=== PATIENT | male | born 1980 | race Caucasian/White ===

== ENCOUNTER → 2019-04-11 07:44 | Outpatient (CLI) | payer OTHER, SELFPAY ==
--- NOTE | 2019-04-11 | DI.MRI.S_ITS ---
PROCEDURE: MR KNEE LT WO CON INDICATIONS: Other internal derangements of left knee TECHNIQUE: Noncontrast sagittal PD fast spin echo and T2 fast spin echo with fat saturation, sagittal 3-D FLASH with fat saturation; coronal T1 spin echo and PD fast spin echo with fat saturation, and axial PD fast spin echo with fat saturation through the knee. COMPARISON: None. FINDINGS: Image quality: Diagnostic. Bones and joint: There is no acute fracture or dislocation. No suspicious osseous lesions are evident. There is a moderate-sized knee joint effusion with an associated prominent Crystal's cyst. Mild edema about the Crystal's cyst is present. Heterogeneity of the hyaline articular cartilage is noted within the medial and patellofemoral compartments a small irregular full-thickness cartilaginous defects present. Areas of degenerative/reactive marrow change are present involving the medial femoral condyle. Heterogeneity of the head articular cartilage within the lateral tibiofemoral compartment is present. Cruciate ligaments: The anterior cruciate ligament is completely torn. The posterior cruciate ligament is intact. Menisci: There is a small vertically oriented tear identified involving the free edge of the lateral meniscus at the junction of the anterior horn and body (image 25, series 6). This tear involves both the femoral and tibial articular surfaces. There is a moderate-sized para meniscal cyst along the anterior aspect of the anterior horn of the lateral ventricle, that measures up to approximately 1.3 cm in diameter. The posterior root of the lateral meniscus probably attaches onto the posterior meniscal femoral ligament, rather than the tibia. The possibility of a full-thickness posterior root avulsion is difficult to exclude. There is high-grade partial-thickness tearing involving the posterior root of the medial meniscus with an additional complex tear extending through the body and posterior horn. A displaced undersurface fragment may be present extending into the adjacent medial gutter. Medial structures: The medial collateral ligament is intact. However, slight articular surface irregularity may be related to previous partial thickness injury. The semimembranosus tendon insertion is intact. The imaged portions of the pes anserinus tendons are unremarkable. No significant fluid is contained within the pes anserinus bursa. Lateral structures: The popliteal tendon is intact. The lateral collateral ligament proper (fibular collateral ligament) and the proximal tibiofibular ligaments are intact. The distal aspect of the biceps femoris tendon and the iliotibial band are intact. Anterior structures: The quadriceps and patellar tendons are intact. There is slight increased signal involving the proximal patellar tendon. There is mild edema in the infrapatellar fat pad. IMPRESSION: 1. Complex medial meniscal tear with a probable undersurface displaced meniscal flap. 2. 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 3. Small vertical tear at the junction of the body and posterior horn of the lateral meniscus. There is questionable posterior root avulsion of the lateral meniscus versus a normal anatomic variant with the posterior root of the lateral meniscus terminating onto the posterior meniscal femoral ligament. 4. Moderate-sized knee joint effusion with a probable leaking Crystal's cyst. 5. 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 Dictated by: Austin Barrios M.D. on 04/11/2019 at 9:20 Approved by: Austin Barrios M.D. on 04/11/2019 at 9:25
== END ==
PROVIDERS: PCP Student in an Organized Health Care Education/Training Program; Visit Provider Student in an Organized Health Care Education/Training Program
DX: S83.512A Sprain of anterior cruciate ligament of left knee, initial encounter (principal); S83.232A Complex tear of medial meniscus, current injury, left knee, initial encounter; S83.282A Other tear of lateral meniscus, current injury, left knee, initial encounter; M25.462 Effusion, left knee; M71.22 Synovial cyst of popliteal space [Baker], left knee; M94.262 Chondromalacia, left knee
CPT/HCPCS: 73721

== ENCOUNTER 2025-05-16 14:05 | Observation (INO) | payer OTHER, SELFPAY ==
[2025-05-16] VITALS (23 sets, daily range): BP systolic 106–167; BP diastolic 78–94; PULSE 57–82; RESP 11–22; TEMP 36.1–36.6; O2SAT 95–99; BMI 27.5; BMI 27.1
--- NOTE | 2025-05-16 14:08 | DI.RAD.S_ITS ---
PROCEDURE: XR CHEST 1V INDICATIONS: Chest Pain TECHNIQUE: One view of the chest was acquired. COMPARISON: None. FINDINGS: Surgical changes and devices: None. Lungs and pleura: On this semiupright portable chest examination, no large pneumothorax or large pleural effusions are seen. No focal infiltrates are seen. Low lung volumes are noted. This causes a crowded appearance to the lung markings and limits evaluation. Mediastinum: Mediastinal contours appear normal. Heart size is normal. Bones and chest wall: No suspicious bony lesions. Overlying soft tissues appear unremarkable. IMPRESSION: Limited portable chest examination, without a significant cardiopulmonary abnormality identified. Dictated by: Lenny Tamez M.D. on 05/16/2025 at 13:35 Approved by: Lenny Tamez M.D. on 05/16/2025 at 13:36
--- NOTE | 2025-05-16 14:08 | EKG_ITS ---
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
[2025-05-16 14:30] LABS: Add Manual Diff / Slide Review NO; Hematocrit 46.4 % (41-53); Hemoglobin 16.2 g/dL (13.5-17.5); Lymphocytes Absolute Auto 2500 /uL (1100-4500); Mean Corpuscular HGB Conc 35.0 % (30-36); Mean Corpuscular Hemoglobin 30.2 PG (26-34); Mean Corpuscular Volume 86.3 fL (80-100); Platelet Count 271 X10^3/uL (150-400)
[2025-05-16 14:33] LABS: INR 1.0 (0.9-1.3); Prothrombin Time 11.7 SECONDS (9.4-12.5)
[2025-05-16 14:36] LABS: PTT Partial Thromboplastin Tim 32 SECONDS (25.1-36.5)
[2025-05-16 14:38] LABS: Alanine Aminotransferase 37 IU/L (<50); Albumin 4.9 g/dL (3.5-5.0); Albumin Globulin Ratio 1.7 (1.0-2.8); Alkaline Phosphatase 55 U/L (38-126); Blood Urea Nitrogen 16 mg/dL (9-20); Calcium 9.3 mg/dL (8.4-10.2); Carbon Dioxide 19 mmol/L (22-32); Chloride 109 mmol/L (98-107); Creatine Kinase 108 U/L (55-170); Estimated Glomerular Filt Rate > 60 mL/min (>60); Globulin 2.9 g/dL (1.7-4.1); Glucose 69 mg/dL (70-99); HEMOLYSIS 24 (0-50); Lipase 73 U/L (23-300); Magnesium 2.3 mg/dL (1.6-2.3); Potassium 3.6 mmol/L (3.4-5.1); Sodium 139 mmol/L (137-145); Total Protein 7.8 g/dL (6.3-8.2)
[2025-05-16 14:49] LABS: NT-proBNP (BNP-Adult 18+) < 20 pg/mL (<125); Troponin I < 0.012 ng/mL (0.01-0.034)
--- NOTE | 2025-05-16 17:43 | ED_ITS ---
HPI - Chest Pain <Gatito France MD - Last Filed: 05/16/25 17:48> General Chief Complaint: Chest Pain Stated Complaint: Chest Pain, SOB Time Seen by Provider: 05/16/25 17:29 Source: patient Mode of arrival: EMS Limitations: no limitations History of Present Illness HPI narrative: This is a 44-year-old male with left-sided pressure-like chest pain that has been ongoing for 2 weeks. Sometimes associated with shortness of breath not associated with a cough or fevers. He has been seen at 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 They initially tried to him with nonsteroidal anti-inflammatories and then we are concerned for pericarditis and started him on colchicine. On colchicine for 6 days without change in his symptoms. Today the patient felt worse with increasing exertional shortness of breath and he called an ambulance. ECG from pre-hospital was reviewed, no acute ST segment changes. Patient reports he is unsure about his family history on his father's side, no known first-degree relatives with coronary disease no history of hypertension elevated cholesterol or diabetes, he used tobacco occasionally. No prolonged immobilizations leg pain or leg swelling. Related Data Home Medications ?Medication ?Instructions ?Recorded ?Confirmed No Known Home Medications 03/26/2512/19 Allergies Allergy/AdvReac Type Severity Reaction Status Date / Time No Known Drug Allergies Allergy Unverified 05/16/25 14:14 Patient History <Gatito France MD - Last Filed: 05/16/25 17:48> Medical History Migraine headache Kidney stones Depression Arthritis Family History Grandmother Diabetes mellitus Mother Migraine Social History marital status: number of children: 3 occupational status: employed Smoking Status: Current some day smoker Tobacco: How many years used: 15 alcohol intake: current caffeine: Yes Type(s) of exercise: walking and running Smoking Status: Current some day smoker tobacco type: cigars Exam <Gatito France MD - Last Filed: 05/16/25 17:48> Initial Vital Signs Initial Vital Signs: Vital Signs Temperature 97.9 F 05/16/25 14:10 Pulse Rate 72 05/16/25 14:10 Respiratory Rate 14 05/16/25 14:10 Blood Pressure 131/85 05/16/25 14:10 Pulse Oximetry 98 05/16/25 14:10 Oxygen Delivery Method Room Air 05/16/25 14:10 vital signs are reviewed Const General: cooperative and No acute distress HENMT Head: normocephalic and atraumatic Face and sinus: face symmetric Mouth: moist mucous membranes Eyes Pupils: PERRL EOM: EOM intact bilaterally Neck Neck: normal visual inspection, supple and No JVD Chest Chest: normal inspection of the chest Resp Effort & Inspection: normal respiratory effort and able to speak in complete sentences Auscultation: clear to auscultation bilaterally Cardio Rate: regular rate Rhythm: regular rhythm Heart Sounds: no murmurs Other: Normal heart rate no friction rub GI Inspection: normal to inspection Palpation: soft Auscultation: normal bowel sounds Back/Spine/Pelvis Back: normal to inspection Skin General: no rashes or lesions noted and warm Neuro General: patient alert, patient oriented x3 and moves all extremities Speech: speech normal Extrem General: full ROM Psych Appearance: grossly normal <Tin Trujillo DO - Last Filed: 05/16/25 20:21> Initial Vital Signs Initial Vital Signs: Vital Signs Temperature 97.9 F 05/16/25 14:10 Pulse Rate 72 05/16/25 14:10 Respiratory Rate 14 05/16/25 14:10 Blood Pressure 131/85 05/16/25 14:10 Pulse Oximetry 98 05/16/25 14:10 Oxygen Delivery Method Room Air 05/16/25 14:10 Course <Gatito France MD - Last Filed: 05/16/25 17:48> Orders Ordered: ED Orders 05/16/25 14:08 XR chest 1V Stat CRP [C-Reactive Protein Quant] Stat ESR [Erythrocyte Sedimentation Rate] Stat EKG-12 Lead Stat 05/16/25 14:18 Complete Blood Count AUTO DIFF Stat Comprehensive Metabolic Panel Stat Lipase Stat Magnesium Stat NT-proBNP (BNP-Adult 18+) Stat PTT Partial Thromboplastin Alfonso Stat Prothrombin Time INR Stat Troponin & CK Cardiac Panel Stat 05/16/25 17:41 CT chest w con Stat 05/16/25 19:16 CT angio chest Stat Vital Signs Vital signs: Vital Signs - 8 hr 05/16/25 14:10 05/16/25 14:10 05/16/25 14:10 Temperature 97.9 F Pulse Rate 72 71 Respiratory Rate 14 Blood Pressure 131/85 131/85 Pulse Oximetry 98 98 Oxygen Delivery Method Room Air 05/16/25 14:30 05/16/25 14:35 05/16/25 14:35 Temperature Pulse Rate 68 62 Respiratory Rate 22 15 Blood Pressure 106/81 Pulse Oximetry 97 98 Oxygen Delivery Method 05/16/25 15:00 05/16/25 15:01 05/16/25 15:01 Temperature Pulse Rate 65 63 Respiratory Rate 16 Blood Pressure 167/88 H Pulse Oximetry 96 97 Oxygen Delivery Method 05/16/25 15:30 05/16/25 15:31 05/16/25 15:31 Temperature Pulse Rate 63 64 Respiratory Rate 14 11 L Blood Pressure 146/83 H Pulse Oximetry 97 97 Oxygen Delivery Method 05/16/25 16:00 05/16/25 16:00 05/16/25 16:30 Temperature Pulse Rate 61 66 Respiratory Rate 19 14 Blood Pressure 147/92 H Pulse Oximetry 98 97 Oxygen Delivery Method 05/16/25 16:31 05/16/25 16:31 05/16/25 17:00 Temperature Pulse Rate 65 64 Respiratory Rate 19 16 Blood Pressure 155/84 H Pulse Oximetry 98 97 Oxygen Delivery Method 05/16/25 17:01 05/16/25 17:01 05/16/25 17:30 Temperature Pulse Rate 66 Respiratory Rate 17 Blood Pressure 150/87 H 146/85 H Pulse Oximetry 97 Oxygen Delivery Method 05/16/25 17:30 05/16/25 18:00 05/16/25 18:02 Temperature Pulse Rate 61 82 Respiratory Rate 22 Blood Pressure 142/87 H Pulse Oximetry 97 96 Oxygen Delivery Method 05/16/25 18:02 Temperature Pulse Rate 61 Respiratory Rate 19 Blood Pressure Pulse Oximetry 99 Oxygen Delivery Method <Tin Trujillo, DO - Last Filed: 05/16/25 20:21> Orders Ordered: ED Orders 05/16/25 14:08 XR chest 1V Stat CRP [C-Reactive Protein Quant] Stat ESR [Erythrocyte Sedimentation Rate] Stat EKG-12 Lead Stat 05/16/25 14:18 Complete Blood Count AUTO DIFF Stat Comprehensive Metabolic Panel Stat Lipase Stat Magnesium Stat NT-proBNP (BNP-Adult 18+) Stat PTT Partial Thromboplastin Alfonso Stat Prothrombin Time INR Stat Troponin & CK Cardiac Panel Stat 05/16/25 17:41 CT chest w con Stat 05/16/25 19:16 CT angio chest Stat Vital Signs Vital signs: Vital Signs - 8 hr 05/16/25 14:10 05/16/25 14:10 05/16/25 14:10 Temperature 97.9 F Pulse Rate 72 71 Respiratory Rate 14 Blood Pressure 131/85 131/85 Pulse Oximetry 98 98 Oxygen Delivery Method Room Air 05/16/25 14:30 05/16/25 14:35 05/16/25 14:35 Temperature Pulse Rate 68 62 Respiratory Rate 22 15 Blood Pressure 106/81 Pulse Oximetry 97 98 Oxygen Delivery Method 05/16/25 15:00 05/16/25 15:01 05/16/25 15:01 Temperature Pulse Rate 65 63 Respiratory Rate 16 Blood Pressure 167/88 H Pulse Oximetry 96 97 Oxygen Delivery Method 05/16/25 15:30 05/16/25 15:31 05/16/25 15:31 Temperature Pulse Rate 63 64 Respiratory Rate 14 11 L Blood Pressure 146/83 H Pulse Oximetry 97 97 Oxygen Delivery Method 05/16/25 16:00 05/16/25 16:00 05/16/25 16:30 Temperature Pulse Rate 61 66 Respiratory Rate 19 14 Blood Pressure 147/92 H Pulse Oximetry 98 97 Oxygen Delivery Method 05/16/25 16:31 05/16/25 16:31 05/16/25 17:00 Temperature Pulse Rate 65 64 Respiratory Rate 19 16 Blood Pressure 155/84 H Pulse Oximetry 98 97 Oxygen Delivery Method 05/16/25 17:01 05/16/25 17:01 05/16/25 17:30 Temperature Pulse Rate 66 Respiratory Rate 17 Blood Pressure 150/87 H 146/85 H Pulse Oximetry 97 Oxygen Delivery Method 05/16/25 17:30 05/16/25 18:00 05/16/25 18:02 Temperature Pulse Rate 61 82 Respiratory Rate 22 Blood Pressure 142/87 H Pulse Oximetry 97 96 Oxygen Delivery Method 05/16/25 18:02 Temperature Pulse Rate 61 Respiratory Rate 19 Blood Pressure Pulse Oximetry 99 Oxygen Delivery Method MDM - Chest Pain <Gatito France MD - Last Filed: 05/16/25 17:48> Lab Data Lab results narrative: Troponin normal, CBC with diff is unremarkable, CMP noted for a bilirubin of 1.9 with normal transaminases and alkaline phosphatase 05/16/25 14:18 05/16/25 14:18 Labs: Lab Results 05/16/25 05/16/25 Range/Units 14:08 14:18 WBC 6.6 (4.5-11.0) X10^3/uL RBC 5.38 (4.5-5.9) X10^6/uL Hgb 16.2 (13.5-17.5) g/dL Hct 46.4 (41-53) % MCV 86.3 (80-100) fL MCH 30.2 (26-34) PG MCHC 35.0 (30-36) % RDW 13.2 (11.6-14.8) % Plt Count 271 (150-400) X10^3/uL Neut % (Auto) 53.0 (50-75) % Lymph % (Auto) 38.1 (25-40) % Creek % (Auto) 6.4 (3-14) % Eos % (Auto) 1.2 L (2-4) % Baso % (Auto) 1.3 (0-2) % Neut # (Auto) 3500 (1452-3882) /uL Lymph # (Auto) 2500 (6417-4108) /uL Creek # (Auto) 400 (0-900) /uL Eos # (Auto) 100 (0-450) /uL Baso # (Auto) 100 (0-100) /uL ESR 2 (0-15) MM/HR PT 11.7 (9.4-12.5) SECONDS INR 1.0 (0.9-1.3) APTT 32 (25.1-36.5) SECONDS Sodium 139 (137-145) mmol/L Potassium 3.6 (3.4-5.1) mmol/L Chloride 109 H (98-107) mmol/L Carbon Dioxide 19 L (22-32) mmol/L BUN 16 (9-20) mg/dL Creatinine 1.17 (0.66-1.25) mg/dL Estimated GFR > 60 (>60) mL/min BUN/Creatinine Ratio 13.7 (6-22) Glucose 69 L (70-99) mg/dL Calcium 9.3 (8.4-10.2) mg/dL Magnesium 2.3 (1.6-2.3) mg/dL Total Bilirubin 1.9 H (0.2-1.3) mg/dL AST 32 (17-59) IU/L ALT 37 (<50) IU/L Alkaline Phosphatase 55 (38-126) U/L Total Creatine Kinase 108 (55-170) U/L Troponin I < 0.012 (0.01-0.034) ng/mL C-Reactive Protein < 0.5 (<1.0) mg/dL NT-Pro-B Natriuret Pep < 20 (<125) pg/mL Total Protein 7.8 (6.3-8.2) g/dL Albumin 4.9 (3.5-5.0) g/dL Globulin 2.9 (1.7-4.1) g/dL Albumin/Globulin Ratio 1.7 (1.0-2.8) Lipase 73 (23-300) U/L Imaging Data Chest x-ray: My Impression: Independent review of chest x-ray, no acute finding ECG Data Attestation: I personally reviewed and interpreted this ECG as follows: (Sinus rhythm at [address] segment changes no previous infarction this is a normal EKG) MDM Narrative Medical decision making narrative: 44-year-old male previously healthy presenting with an episode of chest pain that has been going on for 2 weeks. Does not appear to be ischemic, I considered but do not suspect pulmonary embolism. There has been concern for pericarditis raised by his primary care provider, patient has an order for an outpatient CT of his chest but this is not been completed. Overall he appears stable. I think it is reasonable to further evaluate the possibility of pericarditis given his persistent chest pain, we will get the CT of his chest as well as checking sed rate and C-reactive protein. Patient was cautioned that may not be able to explain his chest pain today. <Tin Trujillo, - Last Filed: 05/16/25 20:21> Lab Data Labs: Lab Results 05/16/25 05/16/25 Range/Units 14:08 14:18 WBC 6.6 (4.5-11.0) X10^3/uL RBC 5.38 (4.5-5.9) X10^6/uL Hgb 16.2 (13.5-17.5) g/dL Hct 46.4 (41-53) % MCV 86.3 (80-100) fL MCH 30.2 (26-34) PG MCHC 35.0 (30-36) % RDW 13.2 (11.6-14.8) % Plt Count 271 (150-400) X10^3/uL Neut % (Auto) 53.0 (50-75) % Lymph % (Auto) 38.1 (25-40) % Creek % (Auto) 6.4 (3-14) % Eos % (Auto) 1.2 L (2-4) % Baso % (Auto) 1.3 (0-2) % Neut # (Auto) 3500 (3974-3957) /uL Lymph # (Auto) 2500 (7772-1943) /uL Creek # (Auto) 400 (0-900) /uL Eos # (Auto) 100 (0-450) /uL Baso # (Auto) 100 (0-100) /uL ESR 2 (0-15) MM/HR PT 11.7 (9.4-12.5) SECONDS INR 1.0 (0.9-1.3) APTT 32 (25.1-36.5) SECONDS Sodium 139 (137-145) mmol/L Potassium 3.6 (3.4-5.1) mmol/L Chloride 109 H (98-107) mmol/L Carbon Dioxide 19 L (22-32) mmol/L BUN 16 (9-20) mg/dL Creatinine 1.17 (0.66-1.25) mg/dL Estimated GFR > 60 (>60) mL/min BUN/Creatinine Ratio 13.7 (6-22) Glucose 69 L (70-99) mg/dL Calcium 9.3 (8.4-10.2) mg/dL Magnesium 2.3 (1.6-2.3) mg/dL Total Bilirubin 1.9 H (0.2-1.3) mg/dL AST 32 (17-59) IU/L ALT 37 (<50) IU/L Alkaline Phosphatase 55 (38-126) U/L Total Creatine Kinase 108 (55-170) U/L Troponin I < 0.012 (0.01-0.034) ng/mL C-Reactive Protein < 0.5 (<1.0) mg/dL NT-Pro-B Natriuret Pep < 20 (<125) pg/mL Total Protein 7.8 (6.3-8.2) g/dL Albumin 4.9 (3.5-5.0) g/dL Globulin 2.9 (1.7-4.1) g/dL Albumin/Globulin Ratio 1.7 (1.0-2.8) Lipase 73 (23-300) U/L Imaging Data CT scan - chest: Radiologist's Impression: [address] [address] [address] Scan Report Signed Patient: Raman Echeverria MR#: [id number] : 1980 Acct:[id number] Age/Sex: 44 / M Date of Service: 05/16/25 Loc: ED Accession Number: [id number] Procedure: CT chest w con Ordering Provider: Gatito France MD PROCEDURE: CT CHEST W CON INDICATIONS: chest pain persistent with concern for peiricarditis TECHNIQUE: After the administration of intravenous contrast, 5 mm thick sections acquired from the pulmonary apices to the posterior costophrenic angles. 1 mm axial lung, 5 mm thick coronal and sagittal reformats and 7 mm axial MIP were acquired. For radiation dose reduction, the following was used: automated exposure control, adjustment of mA and/or kV according to patient size. COMPARISON: [facility], CR, XR CHEST 1V, 05/16/2025, 14:13. FINDINGS: Image quality: Diagnostic. Lower Neck: No enlarged lymph nodes. Thyroid: No thyroid nodules which require sonographic follow up, per consensus guidelines. Axillae: No enlarged lymph nodes. Chest Wall: Unremarkable. Bones: Unremarkable. Lungs and Pleura: No pneumothorax or pleural effusions. No consolidation or suspicious nodules. Heart: Heart size is normal. 3 mm anterior pericardial effusion. Thoracic Vessels: The aorta and pulmonary arteries demonstrate normal size. Mediastinum and Celeste: No enlarged lymph nodes. Esophagus: No wall thickening. No hiatal hernia. Upper Abdomen: 2.1 cm low-attenuation focus within the right hepatic with a 2nd more inferior right hepatic focus measuring 1.3 cm. These are identified series 2, image 86 as well as image 97. Hounsfield units are greater than expected for a simple cyst. IMPRESSION: Lungs are clear. 3 mm anterior pericardial fluid. CTA chest: Radiologist's Impression: [address] [address] [address] Scan Report Signed Patient: Raman Echeverria MR#: [id number] : 1980 Acct:[id number] Age/Sex: 44 / M Date of Service: 05/16/25 Loc: ED Accession Number: [id number] Procedure: CT angio chest Ordering Provider: Tin Trujillo D.O. PROCEDURE: CT ANGIO CHEST INDICATIONS: pt with pericardial effusion, r/o dissection TECHNIQUE: After the administration of intravenous contrast, 2 mm thick sections acquired from the pulmonary apices to the posterior costophrenic angles. 3-dimensional maximum intensity projection (MIP) coronal and sagittal reformats were then acquired through the thorax. For radiation dose reduction, the following was used: automated exposure control, adjustment of mA and/or kV according to patient size. COMPARISON: [facility], CT, CT CHEST W CON, 05/16/2025, 17:49. FINDINGS: Image quality: Diagnostic. Pulmonary arteries: Pulmonary arteries are normal in size, and demonstrate no intraluminal filling defects to suggest central pulmonary embolism. Lower Neck: No enlarged lymph nodes. Thyroid: No thyroid nodules which require sonographic follow up, per consensus guidelines. Axillae: No enlarged lymph nodes. Chest Wall: Unremarkable. Bones: Visualized osseous structures appear intact without acute fracture or focal destructive lesion. No acute compression fractures of the imaged spine. Lungs and Pleura: No pneumothorax or pleural effusions. No consolidation or suspicious nodules. Heart: Heart size is normal. No pericardial effusion. Redemonstration of small pericardial effusion measuring approximately 2 mm in thickness. Thoracic Vessels: No aortic aneurysm. No evidence for aortic dissection. Mediastinum and Celeste: No enlarged lymph nodes. Esophagus: No wall thickening. No hiatal hernia. Upper Abdomen: Redemonstration of hepatic hypodensities which appears less prominent compared to the previous exam, likely related to phase of contrast. IMPRESSION: No acute pulmonary embolus. No acute right-sided heart strain. No evidence for thoracic aortic aneurysm or dissection. Small pericardial effusion measuring approximately 2 mm in thickness. MDM Narrative Medical decision making narrative: 44-year-old male previously healthy presenting with an episode of chest pain that has been going on for 2 weeks. Does not appear to be ischemic, I considered but do not suspect pulmonary embolism. There has been concern for pericarditis raised by his primary care provider, patient has an order for an outpatient CT of his chest but this is not been completed. Overall he appears stable. I think it is reasonable to further evaluate the possibility of pericarditis given his persistent chest pain, we will get the CT of his chest as well as checking sed rate and C-reactive protein. Patient was cautioned that may not be able to explain his chest pain today. 190: Discussed case with Library Supervisor Dr. Garcia who is suggesting to obtaine chest cta if normal can admit for obs and continue nsaids/ colchine and will see in am in consult 1915: Patient was re-evaluated, stating that he is not having significant amount of pain but still slight chest discomfort. Did inform him of need for obtaining CTA and most likely admission. Understands and agrees with this plan. 2006: Patient is CTA negative for aneurysm dissection, patient will require admission for Cardiology consult The patient's management plan was discussed Dr. Gifford, who agrees to admit the patient to their service and assumes care of this patient at this time. Full admission orders will be placed by the primary team. Discharge Plan Departure Patient Disposition: Admitted As Inpatient Clinical Impression: Acute pericardial effusion Admit Date/Time: 05/16/25 20:20 Admit Provider: Hector Gifford
--- NOTE | 2025-05-16 19:16 | DI.CT.S_ITS ---
PROCEDURE: CT ANGIO CHEST INDICATIONS: pt with pericardial effusion, r/o dissection TECHNIQUE: After the administration of intravenous contrast, 2 mm thick sections acquired from the pulmonary apices to the posterior costophrenic angles. 3-dimensional maximum intensity projection (MIP) coronal and sagittal reformats were then acquired through the thorax. For radiation dose reduction, the following was used: automated exposure control, adjustment of mA and/or kV according to patient size. COMPARISON: [facility], CT, CT CHEST W CON, 05/16/2025, 17:49. FINDINGS: Image quality: Diagnostic. Pulmonary arteries: Pulmonary arteries are normal in size, and demonstrate no intraluminal filling defects to suggest central pulmonary embolism. Lower Neck: No enlarged lymph nodes. Thyroid: No thyroid nodules which require sonographic follow up, per consensus guidelines. Axillae: No enlarged lymph nodes. Chest Wall: Unremarkable. Bones: Visualized osseous structures appear intact without acute fracture or focal destructive lesion. No acute compression fractures of the imaged spine. Lungs and Pleura: No pneumothorax or pleural effusions. No consolidation or suspicious nodules. Heart: Heart size is normal. No pericardial effusion. Redemonstration of small pericardial effusion measuring approximately 2 mm in thickness. Thoracic Vessels: No aortic aneurysm. No evidence for aortic dissection. Mediastinum and [place]: No enlarged lymph nodes. Esophagus: No wall thickening. No hiatal hernia. Upper Abdomen: Redemonstration of hepatic hypodensities which appears less prominent compared to the previous exam, likely related to phase of contrast. IMPRESSION: No acute pulmonary embolus. No acute right-sided heart strain. No evidence for thoracic aortic aneurysm or dissection. Small pericardial effusion measuring approximately 2 mm in thickness. Dictated by: Singh Lambert M.D. on 05/16/2025 at 19:53 Approved by: Singh Lambert M.D. on 05/16/2025 at 20:01
--- NOTE | 2025-05-16 21:41 | PM.HP.1 ---
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 He states that pain was sharp and intermittantly dull, nothing seemed to make it better or worse, not worse with activity, no N/V/Diaphoresis. Gigi states that this will be his fourth episode over the past year. He has [place] and was told that it was costocondritis. He was started on colchicine & an NSAID on the when he was seen at the clinic. The pain was getting worse so he to our ER juan. He has been to [place] recently and spent 2 weeks in the [facility] but was not sick with any type of illness there. No recent immunizations, no new meds, denies any significant PMHx. [facility] Medical History Migraine headache Kidney stones Depression Arthritis Family History Grandmother Diabetes mellitus Mother Migraine Social History marital status: number of children: 3 occupational status: employed Smoking Status: Current some day smoker Tobacco: How many years used: 15 alcohol intake: current caffeine: Yes Type(s) of exercise: walking and running Meds Home Medications and Allergies Home Medications ?Medication ?Instructions ?Recorded ?Confirmed ?Type No Known Home Medications 03/26/25 03/26/25 History Allergies Allergy/AdvReac Type Severity Reaction Status Date / Time No Known Drug Allergies Allergy Unverified 05/16/25 14:14 Exam Vital Signs (past 8 hours): - 05/16/25 14:10 05/16/25 14:10 05/16/25 14:10 Temperature 97.9 F Pulse Rate 72 71 Respiratory Rate 14 Blood Pressure 131/85 131/85 Pulse Oximetry 98 98 Oxygen Delivery Method Room Air 05/16/25 14:30 05/16/25 14:35 05/16/25 14:35 Temperature Pulse Rate 68 62 Respiratory Rate 22 15 Blood Pressure 106/81 Pulse Oximetry 97 98 Oxygen Delivery Method 05/16/25 15:00 05/16/25 15:01 05/16/25 15:01 Temperature Pulse Rate 65 63 Respiratory Rate 16 Blood Pressure 167/88 H Pulse Oximetry 96 97 Oxygen Delivery Method 05/16/25 15:30 05/16/25 15:31 05/16/25 15:31 Temperature Pulse Rate 63 64 Respiratory Rate 14 11 L Blood Pressure 146/83 H Pulse Oximetry 97 97 Oxygen Delivery Method 05/16/25 16:00 05/16/25 16:00 05/16/25 16:30 Temperature Pulse Rate 61 66 Respiratory Rate 19 14 Blood Pressure 147/92 H Pulse Oximetry 98 97 Oxygen Delivery Method 05/16/25 16:31 05/16/25 16:31 05/16/25 17:00 Temperature Pulse Rate 65 64 Respiratory Rate 19 16 Blood Pressure 155/84 H Pulse Oximetry 98 97 Oxygen Delivery Method 05/16/25 17:01 05/16/25 17:01 05/16/25 17:30 Temperature Pulse Rate 66 Respiratory Rate 17 Blood Pressure 150/87 H 146/85 H Pulse Oximetry 97 Oxygen Delivery Method 05/16/25 17:30 05/16/25 18:00 05/16/25 18:02 Temperature Pulse Rate 61 82 Respiratory Rate 22 Blood Pressure 142/87 H Pulse Oximetry 97 96 Oxygen Delivery Method 05/16/25 18:02 05/16/25 18:30 05/16/25 18:30 Temperature Pulse Rate 61 61 Respiratory Rate 19 20 Blood Pressure 140/83 Pulse Oximetry 99 97 Oxygen Delivery Method 05/16/25 19:00 05/16/25 19:00 05/16/25 19:30 Temperature Pulse Rate 62 Respiratory Rate 19 Blood Pressure 135/78 141/93 H Pulse Oximetry 97 Oxygen Delivery Method 05/16/25 19:30 05/16/25 19:47 05/16/25 19:47 Temperature Pulse Rate 63 60 Respiratory Rate 22 20 Blood Pressure 144/90 H Pulse Oximetry 96 95 Oxygen Delivery Method 05/16/25 20:00 05/16/25 20:01 05/16/25 20:01 Temperature Pulse Rate 58 L 60 Respiratory Rate 18 18 Blood Pressure 126/94 H Pulse Oximetry 97 97 Oxygen Delivery Method 05/16/25 20:30 05/16/25 20:30 Temperature Pulse Rate 57 L Respiratory Rate 17 Blood Pressure 138/88 Pulse Oximetry 97 Oxygen Delivery Method Oxygen Delivery Method Room Air Const General: cooperative, healthy appearing and comfortable Resp Auscultation: clear to auscultation bilaterally Cardio Rate: regular rate Rhythm: regular rhythm GI Auscultation: normal bowel sounds Neuro General: patient alert, patient awake and patient oriented x3 Objective Labs 05/16/25 14:18 05/16/25 14:18 Labs: Laboratory Results - last 24 hr 05/16/25 05/16/25 14:08 14:18 WBC 6.6 RBC 5.38 Hgb 16.2 Hct 46.4 MCV 86.3 MCH 30.2 MCHC 35.0 RDW 13.2 Plt Count 271 Neut % (Auto) 53.0 Lymph % (Auto) 38.1 [place] % (Auto) 6.4 Eos % (Auto) 1.2 L Baso % (Auto) 1.3 Neut # (Auto) 3500 Lymph # (Auto) 2500 [place] # (Auto) 400 Eos # (Auto) 100 Baso # (Auto) 100 ESR 2 PT 11.7 INR 1.0 APTT 32 Sodium 139 Potassium 3.6 Chloride 109 H Carbon Dioxide 19 L BUN 16 Creatinine 1.17 Estimated GFR > 60 BUN/Creatinine Ratio 13.7 Glucose 69 L Calcium 9.3 Magnesium 2.3 Total Bilirubin 1.9 H AST 32 ALT 37 Alkaline Phosphatase 55 Total Creatine Kinase 108 Troponin I < 0.012 C-Reactive Protein < 0.5 NT-Pro-B Natriuret Pep < 20 Total Protein 7.8 Albumin 4.9 Globulin 2.9 Albumin/Globulin Ratio 1.7 Lipase 73 Assessment & Plan Assessment & Plan narrative: 1. Pericardial Effusion- I discussed the pt's presenting symptoms and labs plus imaging with the ER provider and agree with the decision for admission. I have reviewed the labs showing normal electrolytes and CBC, normal normal ESR + CRP, I have reviewed the CT chest and CTA chest showing the 3 mm pericardial effusion. Will admit the pt on telemetry, repeat labs in am. cardiology has been consulted in the ER, Dr. Zuñiga in cardiology will see the pt in the AM. Will continue his colchicine & ibuprofen. Echocardiogram in am. I, Dr. Hector Gifford in [place] and [place]/ visual of telemedicine with the patients consent and nursing assistance. Time-Based Coding :: [TOTAL MINUTES] spent with patient and on the chart (including review of chart, obtaining history, exam, reviewing outside data, placing orders, documenting exam and treatment plan, and counseling patient) on [DATE].
--- NOTE | 2025-05-16 21:54 | DI.ECHO.S_ITS ---
[facility]+ [facility] : : [id number] : : [place] : : [id number] : : Phone: [phone] Echocardiogram Report + + :Name: MYKEL MORRIS Study Date: 05/17/2025 Height: 68 in : :[facility] ReadingLocation: Weight: 181 lb : : Gender: Male BSA: 2.0 m2 : :: 1980 Age: 44 yrs BP: 117/67 mmHg: :Reason For Study: PERICARDIAL EFFUSION : :Ordering Physician: ROBE, : :BOY Performed By: Levi Wall : :Referring: UNSPECIFIED : + + Interpretation Summary 1) Normal left ventricular thickness, size, wall motion, and systolic function (EF 55-60%). 2) Normal right ventricular size and function. 3) No significant valvular abnormalities. 4) No prior Echo available for comparison. Procedure: A two-dimensional transthoracic echocardiogram with color flow and Doppler was performed. The study quality was technically good. There is no prior echocardiogram noted for this patient. The patient was in normal sinus rhythm during the exam. Left Ventricle: The left ventricle is normal in size. There is normal left ventricular wall thickness. There is no ventricular septal defect visualized. The ejection fraction is estimated to be 55-60%. There are no focal wall motion abnormalities. Diastolic parameters suggest probable normal left ventricular diastolic function and normal filling pressures. Right Ventricle: The right ventricle is normal in size and function. Atria: The left atrial size is normal. Right atrial size is normal. There is no Doppler evidence for an interatrial shunt. Mitral Valve: The mitral valve leaflets appear normal. There is no evidence of stenosis, fluttering, or prolapse. There is no mitral regurgitation noted. Aortic Valve: The aortic valve is trileaflet. The aortic valve opens well. There is no aortic valve stenosis. No aortic regurgitation is present. Tricuspid Valve: The tricuspid valve leaflets are thin and pliable. There is a trace or physiologic amount of tricuspid regurgitation. Pulmonic Valve: The pulmonic valve is not well seen, but is grossly normal. There is trace pulmonic regurgitation. Great Vessels: The aortic root is normal size. The dimensions of the ascending aorta are normal. The pulmonary artery is normal size. The IVC is of normal diameter and collapses greater than 50% with a sniff. This suggests a low right atrial pressure of 3 mm Hg. Pericardium/ Pleura There is no pericardial effusion. MMode/2D Measurements & Calculations LVIDd: 4.9 cm LVOT diam: 2.1 cm LVIDs: 3.6 cm Ao root diam: 3.5 cm FS: 26.9 % asc Aorta Diam: 3.1 cm EPSS: 0.84 cm Ao Arch Diam (Prox Trans): 1.7 cm IVSd: 0.81 cm LVPWd: 0.91 cm LV valdovinos. diameter/BSA (cm/m^2): 2.5 LV sys. diameter/BSA (cm/m^2): 1.8 LA A2 area: 10.6 cm2 RA long axis: 4.7 cm LA A4 area: 14.5 cm2 RA area: 16.1 cm2 LA length (vol): 4.9 cm RA vol: 47.2 ml LA vol: 26.7 ml RA : 24.1 ml/m2 LA vol index: 13.6 ml/m2 IVC diam: 2.0 cm RVD1 (basal): 3.2 cm RVD2 (mid): 2.8 cm TAPSE: 2.4 cm Doppler Measurements & Calculations Ao V2 max: 84.0 cm/sec LVOT Max Yonatan: 70.1 cm/sec Ao V2 mean: 62.8 cm/sec LV V1 max P.0 mmHg Ao max P.8 mmHg LV V1 VTI: 14.9 cm Ao mean P.7 mmHg MATA(I,D): 3.1 cm2 Ao V2 VTI: 17.5 cm MATA(V,D): 3.0 cm2 sev ratio: 0.86 MATA indexed to BSA (cm^2/m^2): 1.6 MV E max yonatan: 54.9 cm/sec TR max yonatan: 190.5 cm/sec MV A max yonatan: 42.9 cm/sec TR max P.5 mmHg MV E/A: 1.3 PA V2 max: 107.1 cm/sec Med Peak E' Yonatan: 8.8 cm/sec PA V2 mean: 71.5 cm/sec E/E' med: 6.3 PA mean P.3 mmHg Lat Peak E' Yonatan: 9.8 cm/sec PA pr(Accel): 72.1 mmHg E/E' lat: 5.6 E/e' average: 5.9 MV dec time: 0.20 sec SV(LVOT): 53.7 ml Reading Physician:02:16 PM
[2025-05-16] MEDS: IBUPROFEN 600 MG TABLET PO (21:57)
[2025-05-16] MEDS: SENNOSIDES 8.6 MG TABLET 17.2 MG PO (21:57)
[2025-05-16] MEDS: HYDROCODONE/ACET 5/325 TABLET 1 TAB PO (21:59)
[2025-05-17 00:31] LABS: MRSA (Nasal) PCR NOT DETECTED (Not Detect)
[2025-05-17 04:00] VITALS: BP 125/80; PULSE 53; RESP 18; TEMP 36.2; O2SAT 95
--- NOTE | 2025-05-17 04:49 | EKG_ITS ---
[facility] [address] [place] [address] Test Date: 2025-05-17 Pat Name: Raman Echeverria Department: [facility] Room: 228 Gender: Male [employer] Officer: [facility] : 1980 Requested By: Order Number: [id number] Reading MD: Enrrique Christianson Measurements Intervals [place] Rate: 54 P: 10 VT: 198 QRS: 5 QRSD: 94 T: 15 QT: 424 QTc: 402 Interpretive Statements Sinus bradycardia with sinus arrhythmia Electronically Signed On 06-01-2025 8:05:58 PDT by Enrrique Christianson
[2025-05-17] MEDS: HYDROCODONE/ACET 5/325 TABLET 1 TAB PO ×2 (04:56→12:39)
[2025-05-17 05:06] LABS: Blood Urea Nitrogen 15 mg/dL (9-20); Calcium 9.0 mg/dL (8.4-10.2); Carbon Dioxide 27 mmol/L (22-32); Chloride 106 mmol/L (98-107); Cholesterol 236 mg/dL (140-199); Estimated Glomerular Filt Rate > 60 mL/min (>60); Glucose 98 mg/dL (70-99); HDL Cholesterol 46 mg/dL (40-60); HEMOLYSIS < 15 (0-50); Potassium 3.9 mmol/L (3.4-5.1); Sodium 137 mmol/L (137-145); Triglycerides 137 mg/dL (35-150)
[2025-05-17 05:18] LABS: Troponin I < 0.012 ng/mL (0.01-0.034)
--- NOTE | 2025-05-17 05:48 | PC.NURSE ---
04:49 Patient woke up with c/o chest pain 06/03, BP 119/80 HR 58 SpO2 97% on RA. 12-lead EKG and Troponin drawn, hospitalist on duty updated.
[2025-05-17 07:00] VITALS: O2SAT 98
[2025-05-17 08:40] VITALS: BP 117/67; PULSE 52; RESP 15; TEMP 35.8; O2SAT 98
--- NOTE | 2025-05-17 13:16 | P.CONS_ITS ---
History of Present Illness Consult details Chief complaint: Chest Pain, SOB Narrative: 44-year-old male with history of sharp left precordial chest pain for last several months. He reported 1st episode while he was at work when he had sharp left precordial pain, throbbing. He was treated with analgesics and anti- inflammatory. He had some resolution of symptoms. Approximately in last 7 months or so he has been experiencing recurrent episodes of similar left-sided chest pains, sharp in nature varying in intensity at times. He came to the emergency room when he experienced similar sharp chest pains. He also reported chest discomfort on lying flat in the bed. He saw multiple providers and there was a thought of pericarditis as a possible cause for his recurrent chest pains. I received a phone call from the ER and advised admission and further diagnostic workup. Meds Home Medications and Allergies Home Medications ?Medication ?Instructions ?Recorded ?Confirmed ?Type colchicine 0.6 mg tablet 0.6 mg PO BID #60 tabs 05/17 Rx hydrocodone 5 mg-acetaminophen 325 1 tab PO Q4H PRN Pa in, Moderate 05/17/25 Rx mg tablet (4-6) #18 tabs indomethacin 50 mg capsule 50 mg PO TID #90 caps 05/17 Rx indomethacin 50 mg capsule 50 mg PO TID #90 caps 05/17 Rx rizatriptan 10 mg disintegrating 10 mg PO PRN migraine 05/17/25 05/17/25 History tablet Allergies Allergy/AdvReac Type Severity Reaction Status Date / Time No Known Drug Allergies Allergy Unverified 05/16/25 14:14 Exam Vital Signs (past 8 hours): - 05/17/25 07:00 05/17/25 07:00 05/17/25 08:40 Temperature 96.5 F L Pulse Rate 52 L Respiratory Rate 15 Blood Pressure 117/67 Pulse Oximetry 98 98 Oxygen Delivery Method Room Air Room Air Oxygen Flow Rate 0 0 Oxygen Delivery Method Room Air Oxygen Flow Rate 0 Objective Labs 05/16/25 14:18 05/17/25 04:10 Labs: Laboratory Results - last 24 hr 05/16/25 05/16/25 05/16/25 14:08 14:18 21:30 WBC 6.6 RBC 5.38 Hgb 16.2 Hct 46.4 MCV 86.3 MCH 30.2 MCHC 35.0 RDW 13.2 Plt Count 271 Neut % (Auto) 53.0 Lymph % (Auto) 38.1 [place] % (Auto) 6.4 Eos % (Auto) 1.2 L Baso % (Auto) 1.3 Neut # (Auto) 3500 Lymph # (Auto) 2500 [place] # (Auto) 400 Eos # (Auto) 100 Baso # (Auto) 100 ESR 2 PT 11.7 INR 1.0 APTT 32 Sodium 139 Potassium 3.6 Chloride 109 H Carbon Dioxide 19 L BUN 16 Creatinine 1.17 Estimated GFR > 60 BUN/Creatinine Ratio 13.7 Glucose 69 L Calcium 9.3 Magnesium 2.3 Total Bilirubin 1.9 H AST 32 ALT 37 Alkaline Phosphatase 55 Total Creatine Kinase 108 Troponin I < 0.012 C-Reactive Protein < 0.5 NT-Pro-B Natriuret Pep < 20 Total Protein 7.8 Albumin 4.9 Globulin 2.9 Albumin/Globulin Ratio 1.7 Triglycerides Cholesterol LDL Cholesterol, Calc HDL Cholesterol Lipase 73 Nasal Screen MRSA (PCR) Not detected 05/17/25 04:10 WBC RBC Hgb Hct MCV MCH MCHC RDW Plt Count Neut % (Auto) Lymph % (Auto) [place] % (Auto) Eos % (Auto) Baso % (Auto) Neut # (Auto) Lymph # (Auto) [place] # (Auto) Eos # (Auto) Baso # (Auto) ESR PT INR APTT Sodium 137 Potassium 3.9 Chloride 106 Carbon Dioxide 27 BUN 15 Creatinine 1.23 Estimated GFR > 60 BUN/Creatinine Ratio 12.2 Glucose 98 Calcium 9.0 Magnesium Total Bilirubin AST ALT Alkaline Phosphatase Total Creatine Kinase Troponin I < 0.012 C-Reactive Protein NT-Pro-B Natriuret Pep Total Protein Albumin Globulin Albumin/Globulin Ratio Triglycerides 137 Cholesterol 236 H LDL Cholesterol, Calc 163 H HDL Cholesterol 46 Lipase Nasal Screen MRSA (PCR) [facility] Medical History Migraine headache Kidney stones Depression Arthritis Family History Grandmother Diabetes mellitus Mother Migraine Social History marital status: number of children: 3 household members: spouse lives independently: Yes occupational status: employed Tobacco & Substance Use Smoking Status: Current some day smoker Tobacco: How many years used: 15 alcohol intake: current Diet and Exercise caffeine: Yes Type(s) of exercise: walking and running Assessment & Plan Assessment & Plan narrative: 44-year-old male with history of sharp left precordial chest pain for last several months. He reported 1st episode while he was at work when he had sharp left precordial pain, throbbing. He was treated with analgesics and anti- inflammatory. He had some resolution of symptoms. Approximately in last 7 months or so he has been experiencing recurrent episodes of similar left-sided chest pains, sharp in nature varying in intensity at times. He came to the emergency room when he experienced similar sharp chest pains. He also reported chest discomfort on lying flat in the bed. He saw multiple providers and there was a thought of pericarditis as a possible cause for his recurrent chest pains. I received a phone call from the ER and advised admission and further diagnostic workup. Subsequently he was admitted to the hospital and underwent chest CTA to rule out aortic dissection, intramural hematoma, thoracic trauma, rib fractures, myofascial injuries. He underwent myocardial perfusion scintigraphic study. The study was low risk with no evidence of ischemia or infarction. The post- stress ejection fraction was 67%. I met with the patient again and reviewed his history. I suspect he has costochondritis with probable pericarditis. I think it is reasonable to continue with empiric treatment of pericarditis with colchicine 0.6 mg twice daily and indomethacin 25 mg twice daily after meals. I would like to see him in the office for a follow-up to review his symptoms. I advised him to avoid any repetitive trauma to left precordial wall to avoid any recurrent injury to the costochondral junction. Follow up in the office in 2-3 weeks. Time-Based Coding :: [TOTAL MINUTES] spent with patient and on the chart (including review of chart, obtaining history, exam, reviewing outside data, placing orders, documenting exam and treatment plan, and counseling patient) on [DATE].
--- NOTE | 2025-05-17 13:21 | PM.CN ---
History of Present Illness Consult details Chief complaint: Chest Pain, SOB Meds Home Medications and Allergies Home Medications ?Medication ?Instructions ?Recorded ?Confirmed ?Type colchicine 0.6 mg tablet 0.6 mg PO DAILY 05/17/25 05/17/25 History rizatriptan 10 mg disintegrating 10 mg PO PRN migraine 05/17/25 05/17/25 History tablet Allergies Allergy/AdvReac Type Severity Reaction Status Date / Time No Known Drug Allergies Allergy Unverified 05/16/25 14:14 Review of Systems Cardiovascular Cardiovascular: Reports chest pain with activity, Reports dyspnea on exertion and Reports orthopnea Respiratory Respiratory: Reports dyspnea on exertion Musculoskeletal Comments: sharp pain left precordial area. Exam Vital Signs (past 8 hours): - 05/17/25 07:00 05/17/25 07:00 05/17/25 08:40 Temperature 96.5 F L Pulse Rate 52 L Respiratory Rate 15 Blood Pressure 117/67 Pulse Oximetry 98 98 Oxygen Delivery Method Room Air Room Air Oxygen Flow Rate 0 0 Oxygen Delivery Method Room Air Oxygen Flow Rate 0 Objective Labs 05/16/25 14:18 05/17/25 04:10 Labs: Laboratory Results - last 24 hr 05/16/25 05/16/25 05/16/25 14:08 14:18 21:30 WBC 6.6 RBC 5.38 Hgb 16.2 Hct 46.4 MCV 86.3 MCH 30.2 MCHC 35.0 RDW 13.2 Plt Count 271 Neut % (Auto) 53.0 Lymph % (Auto) 38.1 [place] % (Auto) 6.4 Eos % (Auto) 1.2 L Baso % (Auto) 1.3 Neut # (Auto) 3500 Lymph # (Auto) 2500 [place] # (Auto) 400 Eos # (Auto) 100 Baso # (Auto) 100 ESR 2 PT 11.7 INR 1.0 APTT 32 Sodium 139 Potassium 3.6 Chloride 109 H Carbon Dioxide 19 L BUN 16 Creatinine 1.17 Estimated GFR > 60 BUN/Creatinine Ratio 13.7 Glucose 69 L Calcium 9.3 Magnesium 2.3 Total Bilirubin 1.9 H AST 32 ALT 37 Alkaline Phosphatase 55 Total Creatine Kinase 108 Troponin I < 0.012 C-Reactive Protein < 0.5 NT-Pro-B Natriuret Pep < 20 Total Protein 7.8 Albumin 4.9 Globulin 2.9 Albumin/Globulin Ratio 1.7 Triglycerides Cholesterol LDL Cholesterol, Calc HDL Cholesterol Lipase 73 Nasal Screen MRSA (PCR) Not detected 05/17/25 04:10 WBC RBC Hgb Hct MCV MCH MCHC RDW Plt Count Neut % (Auto) Lymph % (Auto) [place] % (Auto) Eos % (Auto) Baso % (Auto) Neut # (Auto) Lymph # (Auto) [place] # (Auto) Eos # (Auto) Baso # (Auto) ESR PT INR APTT Sodium 137 Potassium 3.9 Chloride 106 Carbon Dioxide 27 BUN 15 Creatinine 1.23 Estimated GFR > 60 BUN/Creatinine Ratio 12.2 Glucose 98 Calcium 9.0 Magnesium Total Bilirubin AST ALT Alkaline Phosphatase Total Creatine Kinase Troponin I < 0.012 C-Reactive Protein NT-Pro-B Natriuret Pep Total Protein Albumin Globulin Albumin/Globulin Ratio Triglycerides 137 Cholesterol 236 H LDL Cholesterol, Calc 163 H HDL Cholesterol 46 Lipase Nasal Screen MRSA (PCR) [facility] Medical History Migraine headache Kidney stones Depression Arthritis Family History Grandmother Diabetes mellitus Mother Migraine Social History marital status: number of children: 3 household members: spouse lives independently: Yes occupational status: employed Tobacco & Substance Use Smoking Status: Current some day smoker Tobacco: How many years used: 15 alcohol intake: current Diet and Exercise caffeine: Yes Type(s) of exercise: walking and running Assessment & Plan Time-Based Coding :: [TOTAL MINUTES] spent with patient and on the chart (including review of chart, obtaining history, exam, reviewing outside data, placing orders, documenting exam and treatment plan, and counseling patient) on [DATE].
--- NOTE | 2025-05-17 13:22 | PM.CN ---
History of Present Illness Consult details Chief complaint: Chest Pain, SOB Meds Home Medications and Allergies Home Medications ?Medication ?Instructions ?Recorded ?Confirmed ?Type colchicine 0.6 mg tablet 0.6 mg PO DAILY 05/17/25 05/17/25 History rizatriptan 10 mg disintegrating 10 mg PO PRN migraine 05/17/25 05/17/25 History tablet Allergies Allergy/AdvReac Type Severity Reaction Status Date / Time No Known Drug Allergies Allergy Unverified 05/16/25 14:14 Exam Vital Signs (past 8 hours): - 05/17/25 07:00 05/17/25 07:00 05/17/25 08:40 Temperature 96.5 F L Pulse Rate 52 L Respiratory Rate 15 Blood Pressure 117/67 Pulse Oximetry 98 98 Oxygen Delivery Method Room Air Room Air Oxygen Flow Rate 0 0 Oxygen Delivery Method Room Air Oxygen Flow Rate 0 Const General: cooperative, healthy appearing and in distress Orientation: alert, awake and oriented x3 HENMT Head: normal to inspection Mouth: oral mucosae normal Eyes General: appearance normal, both eyes and all related structures Neck Neck: normal visual inspection and full ROM Chest Chest: normal inspection of the chest and normal palpation of entire chest wall Other: Slight tenderness on left precordial area at costochondral junction Resp Effort & Inspection: normal respiratory effort and able to speak in complete sentences Cardio Palpation: normal PMI Rate: regular rate Rhythm: regular rhythm Heart Sounds: S1 normal and S2 normal GI Inspection: normal to inspection Skin General: no rashes or lesions noted Extrem General: normal to inspection Psych Appearance: grossly normal and well kempt Mental Status: mental status grossly normal Objective Labs 05/16/25 14:18 05/17/25 04:10 Labs: Laboratory Results - last 24 hr 05/16/25 05/16/25 05/16/25 14:08 14:18 21:30 WBC 6.6 RBC 5.38 Hgb 16.2 Hct 46.4 MCV 86.3 MCH 30.2 MCHC 35.0 RDW 13.2 Plt Count 271 Neut % (Auto) 53.0 Lymph % (Auto) 38.1 [place] % (Auto) 6.4 Eos % (Auto) 1.2 L Baso % (Auto) 1.3 Neut # (Auto) 3500 Lymph # (Auto) 2500 [place] # (Auto) 400 Eos # (Auto) 100 Baso # (Auto) 100 ESR 2 PT 11.7 INR 1.0 APTT 32 Sodium 139 Potassium 3.6 Chloride 109 H Carbon Dioxide 19 L BUN 16 Creatinine 1.17 Estimated GFR > 60 BUN/Creatinine Ratio 13.7 Glucose 69 L Calcium 9.3 Magnesium 2.3 Total Bilirubin 1.9 H AST 32 ALT 37 Alkaline Phosphatase 55 Total Creatine Kinase 108 Troponin I < 0.012 C-Reactive Protein < 0.5 NT-Pro-B Natriuret Pep < 20 Total Protein 7.8 Albumin 4.9 Globulin 2.9 Albumin/Globulin Ratio 1.7 Triglycerides Cholesterol LDL Cholesterol, Calc HDL Cholesterol Lipase 73 Nasal Screen MRSA (PCR) Not detected 05/17/25 04:10 WBC RBC Hgb Hct MCV MCH MCHC RDW Plt Count Neut % (Auto) Lymph % (Auto) [place] % (Auto) Eos % (Auto) Baso % (Auto) Neut # (Auto) Lymph # (Auto) [place] # (Auto) Eos # (Auto) Baso # (Auto) ESR PT INR APTT Sodium 137 Potassium 3.9 Chloride 106 Carbon Dioxide 27 BUN 15 Creatinine 1.23 Estimated GFR > 60 BUN/Creatinine Ratio 12.2 Glucose 98 Calcium 9.0 Magnesium Total Bilirubin AST ALT Alkaline Phosphatase Total Creatine Kinase Troponin I < 0.012 C-Reactive Protein NT-Pro-B Natriuret Pep Total Protein Albumin Globulin Albumin/Globulin Ratio Triglycerides 137 Cholesterol 236 H LDL Cholesterol, Calc 163 H HDL Cholesterol 46 Lipase Nasal Screen MRSA (PCR) [facility] Medical History Migraine headache Kidney stones Depression Arthritis Family History Grandmother Diabetes mellitus Mother Migraine Social History marital status: number of children: 3 household members: spouse lives independently: Yes occupational status: employed Tobacco & Substance Use Smoking Status: Current some day smoker Tobacco: How many years used: 15 alcohol intake: current Diet and Exercise caffeine: Yes Type(s) of exercise: walking and running Assessment & Plan Assessment & Plan narrative: 44-year-old male with no significant past medical history presented to the emergency room with intermittent chest pains of waiting intensity for last 6-8 months. He was treated for acute recurrent pericarditis with colchicine without any anti-inflammatory medications. His history is somewhat confusing and confirming for pericarditis. He denies any use of steroids for his recurrent pericarditis. Evaluation in the hospital is nondiagnostic and unrevealing. His CTA did not demonstrated any aneurysms dissections or intramural hematomas. His myocardial perfusion scintigraphic imaging study demonstrated normal perfusion with no evidence of ischemia or infarction. The post stress ejection fraction was 67%. Echo report is not available. My clinical examination demonstrated mild tenderness in the left precordial area at the junction of costochondral. Chest pain most likely costochondritis however given longstanding history pericarditis as a 2nd potential etiology. I advised him to take colchicine 0.6 mg twice daily and take indomethacin 25 mg twice daily after meals for 6 weeks. I would like to see him in the office for follow-up. I personally informed hospitalist on-call. Patient can be discharged with a follow-up appointment at [place] [phone]. Time-Based Coding :: [TOTAL MINUTES] spent with patient and on the chart (including review of chart, obtaining history, exam, reviewing outside data, placing orders, documenting exam and treatment plan, and counseling patient) on [DATE].
[2025-05-17 13:25] VITALS: BP 122/81; PULSE 73; RESP 15; O2SAT 97
--- NOTE | 2025-05-17 13:27 | PM.TREADMILL ---
Cardiac Stress Test Report Referral & Results Date Patient Seen: 05/17/25 Requesting provider: Enrrique Christianson Indication: Chest Pain Rest ECG: NSR Procedure Note: Please see the scanned document Impression: Low risk study No evidence of ischemia or infarction Post stress ejection fraction of 67%. Please note: Actual ECG tracings can be found in the PACS system.
--- NOTE | 2025-05-17 13:30 | P.DS_ITS ---
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 He states that pain was sharp and intermittantly dull, nothing seemed to make it better or worse, not worse with activity, no N/V/Diaphoresis. Gigi states that this will be his fourth episode over the past year. [place] [facility] and was told that it was costocondritis. He was started on colchicine & an NSAID on the when he was seen at the clinic. The pain was getting worse so [facility] He has been to [facility] recently and spent 2 weeks in the [facility] but was not sick with any type of illness there. No recent immunizations, no new meds, denies any significant PMHx. Hospital course: 05/17: Ruled out for myocardial infarction, underwent nuclear medicine stress testing which was low probability patient's anti-inflammatory changed to colchicine and Indocin by cardiology and will follow up with Cardiology discharged in stable condition Review of systems: No fever or chills No shortness a breath No nausea vomiting diarrhea Physical exam: No acute distress Heart rate and rhythm regular Lungs clear Extremities no edema Neuro nonfocal Assessment and plan: Peritonitis and costochondritis anti-inflammatory switch to Indocin and colchicine by Cardiology we will follow up stress test negative echocardiogram without indication of instability 35 minutes were involved in management of the discharge of this patient including consultation with consultants review of imaging lab inpatient management Discharge Providers Provider Date of admission: 05/16/25 20:20 Discharge Date: 05/17/25 Primary care physician: Dave LYON Provider Consults: 05/16/25 20:06 Consult to Cardiology Stat Comment: Consulting Provider: Kevin Garcia Reason for consultation: pericardial effusion Discharge provider: Jonah So MD Exam Vital Signs (past 8 hours): - 05/17/25 07:00 05/17/25 07:00 05/17/25 08:40 Temperature 96.5 F L Pulse Rate 52 L Respiratory Rate 15 Blood Pressure 117/67 Pulse Oximetry 98 98 Oxygen Delivery Method Room Air Room Air Oxygen Flow Rate 0 0 05/17/25 13:25 Temperature Pulse Rate 73 Respiratory Rate 15 Blood Pressure 122/81 Pulse Oximetry 97 Oxygen Delivery Method Oxygen Flow Rate 0 Oxygen Delivery Method Room Air Oxygen Flow Rate 0 Objective Labs 05/16/25 14:18 05/17/25 04:10 Labs: Laboratory Results - last 24 hr 05/16/25 05/16/25 05/16/25 14:08 14:18 21:30 WBC 6.6 RBC 5.38 Hgb 16.2 Hct 46.4 MCV 86.3 MCH 30.2 MCHC 35.0 RDW 13.2 Plt Count 271 Neut % (Auto) 53.0 Lymph % (Auto) 38.1 [place] % (Auto) 6.4 Eos % (Auto) 1.2 L Baso % (Auto) 1.3 Neut # (Auto) 3500 Lymph # (Auto) 2500 [place] # (Auto) 400 Eos # (Auto) 100 Baso # (Auto) 100 ESR 2 PT 11.7 INR 1.0 APTT 32 Sodium 139 Potassium 3.6 Chloride 109 H Carbon Dioxide 19 L BUN 16 Creatinine 1.17 Estimated GFR > 60 BUN/Creatinine Ratio 13.7 Glucose 69 L Calcium 9.3 Magnesium 2.3 Total Bilirubin 1.9 H AST 32 ALT 37 Alkaline Phosphatase 55 Total Creatine Kinase 108 Troponin I < 0.012 C-Reactive Protein < 0.5 NT-Pro-B Natriuret Pep < 20 Total Protein 7.8 Albumin 4.9 Globulin 2.9 Albumin/Globulin Ratio 1.7 Triglycerides Cholesterol LDL Cholesterol, Calc HDL Cholesterol Lipase 73 Nasal Screen MRSA (PCR) Not detected 05/17/25 04:10 WBC RBC Hgb Hct MCV MCH MCHC RDW Plt Count Neut % (Auto) Lymph % (Auto) [place] % (Auto) Eos % (Auto) Baso % (Auto) Neut # (Auto) Lymph # (Auto) [place] # (Auto) Eos # (Auto) Baso # (Auto) ESR PT INR APTT Sodium 137 Potassium 3.9 Chloride 106 Carbon Dioxide 27 BUN 15 Creatinine 1.23 Estimated GFR > 60 BUN/Creatinine Ratio 12.2 Glucose 98 Calcium 9.0 Magnesium Total Bilirubin AST ALT Alkaline Phosphatase Total Creatine Kinase Troponin I < 0.012 C-Reactive Protein NT-Pro-B Natriuret Pep Total Protein Albumin Globulin Albumin/Globulin Ratio Triglycerides 137 Cholesterol 236 H LDL Cholesterol, Calc 163 H HDL Cholesterol 46 Lipase Nasal Screen MRSA (PCR) PFSH Medical History Migraine headache Kidney stones Depression Arthritis Family History Grandmother Diabetes mellitus Mother Migraine Social History marital status: number of children: 3 household members: spouse and children lives independently: Yes occupational status: employed Tobacco: How many years used: 15 alcohol intake: current caffeine: Yes Type(s) of exercise: walking and running Discharge Plan Discharge Plan Patient Disposition: Home Discharge orders & Medications Prescriptions: New hydrocodone-acetaminophen 5-325 mg Tablet 1 tab PO Q4H PRN (Reason: Pain, Moderate (4-6)) Qty: 18 0RF colchicine 0.6 mg Tablet 0.6 mg PO BID Qty: 60 1RF indomethacin 50 mg capsule 50 mg PO TID Qty: 90 1RF Rx Instructions: administer with food or milk indomethacin 50 mg capsule 50 mg PO TID Qty: 90 1RF Rx Instructions: administer with food or milk Continued rizatriptan 10 mg tablet,disintegrating 10 mg PO PRN Discontinued colchicine 0.6 mg tablet 0.6 mg PO DAILY Follow up/Referrals: Kevin Garcia MD [Physician, Cardiology] - 05/23/25 Dave Mckeon [Primary Care Provider, Family Practice] Visit Report/Discharge Packet Stand Alone Forms: Patient Portal/API Discharge Data Primary Care Provider: Dave Mckeon Attending Provider: Hector Gifford Admit Date/Time: 05/16/25 20:20 Quality VTE Deep Vein Thrombosis/Pulmonary Embolism Present on Admission: No
--- NOTE | 2025-05-17 13:37 | CM.DANOTE ---
Initial DCP Assessment Note Pt is a 44 yo male, [place] [facility]ardial effusion. Cardiology consult today. PCP: Provider [place] [facility]- [facility] Dave Payer: Kelby Carrillo Reviewed chart, pt discussed in multidisciplinary rounds this morning. ADRIANO 05/18 Patient lives independently with spouse and [place]. No barriers identified at this time to patient's safe discharge home w/family to assist as needed; close outpatient f/u recommended. Social work team will plan to follow clinical course closely in case any DC needs or concerns arise. BENNY Avina Discharge Planning/Care Management CM Discharge Assessment Start: 05/16/25 20:47 Freq: Status: Active Protocol: Document 05/17/25 13:35 AMBROSIO (Rec: 05/17/25 13:37 [email or web address] [id number]) Discharge Planning Assessment Assigned Discharge BENNY Badillo [employer] DPOA/Assigned Sienna Juwan, spouse Designee Name Contact Information [phone] Advance Directives? No History Provided By Patient,Medical Record Prior Living Other Arrangements Comment Active duty member, [place] Household Members spouse,children Type of Drives own vehicle transporation used prior to admit Independent with ADL Yes 's Is patient alert and Yes oriented? Comment Independent Comment Home. Close outpatient follow up. Barriers to No Discharge Discharge Plan Home Transportation Family Arrangement Referrals Initiated None needed
--- NOTE | 2025-05-18 17:17 | DI.NM.S_ITS ---
DATE OF SERVICE: 05/17/2025 NUCLEAR CARDIOLOGY MYOCARDIAL PERFUSION STUDY PROCEDURE: Exercise treadmill stress and rest myocardial perfusion imaging with gating to assess ejection fraction and regional wall motion. ORDERING PROVIDER: Dr. Kevin Garcia. INDICATIONS: The patient is a 44-year-old male with intermittent atypical chest discomfort and possible small pericardial effusion. CARDIAC STRESS: The patient was able to exercise for 7 minutes 10 seconds on a standard Adolfo protocol suggesting moderate-severely reduced exercise capacity with an YO of +41%, achieving 7.0 METs. He had a normal heart rate and blood pressure response to exercise, achieving a maximum heart rate of 158 bpm (90% of his predicted maximum). His resting ECG shows sinus rhythm with normal ST segments. There are no significant ST-segment shifts or arrhythmias with stress. At 6 minutes 15 seconds of exercise at a heart rate of 153 bpm, 27.1 mCi of technetium-99m Myoview was injected and he was imaged 15 minutes later using a gated SPECT acquisition protocol. Earlier in the day while at rest, he had been injected with 12.4 mCi of technetium-99m Myoview and was imaged 15 minutes later, again using a gated SPECT acquisition protocol. FINDINGS: 1. Raw Data: There is fair myocardial tracer uptake. The lung/heart ratio could not be calculated but the TID ratio is normal at 1.00. 2. Quantitated gated SPECT: Post-stress ejection fraction is normal at 67% without any focal wall motion abnormality. The resting ejection fraction is 60% with a normal resting end-diastolic volume of 81 mL. 3. Myocardial perfusion imaging: Post-stress supine images show a normal myocardial perfusion pattern, supported by normal perfusion imaging in the prone position. The resting images show an identical perfusion pattern without any clear areas of improvement. IMPRESSION: 1. Normal myocardial perfusion study. 2. No perfusion defects to suggest myocardial ischemia or previous myocardial infarction. 3. Normal left ventricular size and systolic function without focal abnormality. 4. Moderate-severely reduced exercise capacity without angina or ECG evidence of ischemia. There were no arrhythmias. Faviolahalle Raman - RS/fn/WI doc#: [id number]/job#: [id number] dd: 05/18/2025 16:53:00 dt: 05/18/2025 17:02:00 DICTATING MD/COPIES TO: Maxwell Jauregui MD; Kevin Garcia MD COPIES MNE: JOS;
== END 2025-05-17 15:24 | disposition home or self-care (01) ==
LOC: ED 19:54 → AC 20:21 → ICU 05-17 05:50 → AC 05-17 13:39 → ICU 05-17 13:39
PROVIDERS: Emergency Medicine; Admitting Provider Internal Medicine; Emergency Provider Student in an Organized Health Care Education/Training Program; Visit Provider Internal Medicine
DX: I31.39 Other pericardial effusion (noninflammatory) (principal); M94.0 Chondrocostal junction syndrome [Tietze]; F17.210 Nicotine dependence, cigarettes, uncomplicated; R06.02 Shortness of breath
CPT/HCPCS: 36415; 71045; 71260; 71275; 78452; 80048; 80053; 80061; 82550; 83690; 83735; 83880; 84484; 85025; 85610; 85651; 85730; 86140; 87797; 93005; 93017; 93306; 99283; 99284; G0378; A9502; Q9967

== ENCOUNTER → 2025-08-03 09:36 | Outpatient (CLI) | payer OTHER, SELFPAY ==
[2025-05-16 20:55] VITALS: BMI 27.1
[2025-08-03 10:12] LABS: Semen Sperm Prescence Post-Vas Absent (ABSENT)
== END ==
PROVIDERS: Referring Provider Urology; Visit Provider Urology
DX: Z98.52 Vasectomy status (principal)
CPT/HCPCS: 89321